=== PATIENT | female | born 1935 | race Caucasian/White ===

== ENCOUNTER → 2019-06-28 | Outpatient (CLI) | payer MEDICARE | END | disposition home or self-care (01) | LOC: RAH 07:15 | PROVIDERS: ATTEND Physical Medicine & Rehabilitation | DX: M51.16 Intervertebral disc disorders with radiculopathy, lumbar region (principal); M48.061 Spinal stenosis, lumbar region without neurogenic claudication; M89.38 Hypertrophy of bone, other site | CPT/HCPCS: 72148 ==

== ENCOUNTER 2019-10-26 07:23 | Day surgery (SDC) | payer MEDICARE ==
[2019-10-26] VITALS (11 sets, daily range): BP systolic 138–159; BP diastolic 78–84
[2019-10-26] MEDS: CEFAZOLIN SODIUM 1 GM VIAL IVP SCH ×2 (06:00→07:30)
[~2019-10-26 07:23] MED LIST: FENTANYL CITRATE PF 50 MCG/1 ML 2ML VIAL ONE; LACTATED RINGERS 1000ML 1,000 ML IV ONE; LIDOCAINE HCL-MPF 0.5% 50ML VIAL IJ ONE; LOSA50TA64 PO; METO100T7 PO; METO50TA9 PO; MIDAZOLAM HCL 1 MG/ML 2ML VIAL ONE; MONT10TA26 PO; PROPOFOL 10 MG/ML 20ML VIAL IV ONE; VITAMIN D PO
--- NOTE | 2019-10-26 08:45 | NUR ---
POST RECEIVED PT FROM PACU , S/P RIGHT CARPAL TUNNEL RELEASE , DRESSING TO SITE DRY AND INTACT, PT STATES DRESSING FEELS GOOD. STATES DOESN'T FEEL TIGHT"VS STABLE ON ARRIVAL. PT AWAKE AND ALERT. PT ABLE TO WIGGLE FINGERS TO RIGHT HAND. PT RECEIVED A BLOCK TO RIGHT ARM BUT PT ABLE TO STILL WIGGLE FINGERS.
--- NOTE | 2019-10-26 09:03 | NUR ---
DC DC INTRUCTIONS GIVEN TO PT SPOUSE/PT INSTRUCTED TO F/U WITH DR. PEDRO AND TO TAKE STAPLE REMOVAL KIT PROVIDED TO THEM, RX GIVEN TO PATIENT, INTRUCTED ON NEW MED REGIMEN. DRESSING TO RIGHT HAND DRY AND INTACT, OFFERED PATIENT TO LOOSEN DRESSING SHE STATED DRESSING FEELS GOOD.
--- NOTE | 2019-10-26 09:07 | NUR ---
DC PT DC HOME VIA WC,NO DISTRESS NOTED. PT ACCOMPANIED BY SPOUSE. PT DENIED ANY PAIN OR DISCOMFORTS
== END 2019-10-26 09:07 | disposition home or self-care (01) ==
LOC: DAH 07:23
PROVIDERS: ATTEND Neurological Surgery
DX: G56.01 Carpal tunnel syndrome, right upper limb (principal); I10 Essential (primary) hypertension; J45.909 Unspecified asthma, uncomplicated; Z79.899 Other long term (current) drug therapy
CPT/HCPCS: 64721; 93005; A4213; A4215 ×2; A4216; A4222; A4223; A4663; J0690; J2250; J2704; J3010; J3490; J7120